=== PATIENT | male | born 1985 | race Caucasian/White ===

== ENCOUNTER 2021-01-27 19:13 | Emergency (ER) | payer OTHER, SELFPAY ==
--- NOTE | ~2021-01-27 | CT_ITS ---
EXAMINATION: CT abdomen pelvis w con INDICATION: Left lower quadrant pain TECHNIQUE: Computed tomographic images of the abdomen and pelvis were obtained after the administrati on of 100 cc of Omnipaque 350 intravenous contrast. The dose-length product (DLP) was 635.00 mGy-cm. Automated exposure control and iterative reconstruction technique were employed. COMPARISON: 10/06/2019 FINDINGS: Minimal dependent atelectasis is present in the lung bases. The heart size is normal. The l iver, spleen, pancreas, gallbladder, and adrenal glands are normal. The kidneys are unremarkable. No pathologically enlarged abdominal or pelvic lymph nodes are identified. There is no free intraperiton eal gas or evidence of bowel obstruction. A large volume of colonic stool is present. There is formed stool in the nondistended terminal ileum, suggestive of slow transit. IMPRESSION: 1. No CT correlate for the patient's symptoms. Reviewed, dictated and finalized at location A.
[2021-01-27 19:36] VITALS: BP 139/62; PULSE 66; RESP 16; TEMP 36.4; O2SAT 100
[2021-01-27 20:56] VITALS: PULSE 59; RESP 20; TEMP 36.7; O2SAT 100
--- NOTE | 2021-01-27 20:57 | ED.ABDPAIN ---
HPI - Abdominal Pain General Chief Complaint: Abdominal Pain Stated Complaint: lower abd pain Time Seen by Provider: 01/27/21 20:49 Source: RN notes reviewed History of Present Illness HPI narrative: Patient presents emergency department from home for abdominal pain. Patient states symptoms began 3 days ago. The pain is located left lower quadrant does not radiate. Described as sharp and stabbing. Nothing seems to make the pain better or worse. Denies any fevers or chills, chest pain, shortness of breath, nausea, vomiting, diarrhea or any other symptoms. States he took no medication for the symptoms today Related Data Home Medications Medication Instructions Recorded Confirmed multivitamin 1 cap PO DAILY 10/18/19 11/07/19 Allergies Allergy/AdvReac Type Severity Reaction Status Date / Time No Known Allergies Allergy Verified 10/18/19 10:07 Review of Systems Review of Systems: Narrative: Gen.: Denies fevers or chills ENT: Denies congestion Respiratory: Denies shortness of breath or cough CV: Denies chest pain or palpitations GI: See HPI denies burning, urgency, frequency or hematuria Musculoskeletal: Denies back pain or muscle pain Neuro: Denies numbness, tingling, weakness or focal weakness Skin: Denies rash Except as documented, all other systems reviewed and negative PMFSH Past Medical History Medical History (Updated 01/27/21 @ 22:26 by Rian Carr DO) Deviated septum Sinus problem Surgical History Surgical History H/O removal of cyst left wrist Hx laparoscopic cholecystectomy Social History Social History Smoking status: Never smoker Alcohol intake: current Gender identity (if verbalized by the patient): Male Exam Narrative: Exam Narrative: APPEARANCE: No acute distress, nontoxic, resting in bed HEENT: Normocephalic, atraumatic, OMM RESPIRATORY: No respiratory distress, clear to auscultation bilaterally with no rhonchi wheezing or rales CARDIOVASCULAR: RRR s murmur ABDOMINAL: Soft nondistended, tender palpation left lower quadrant no tenderness in right lower quadrant and right upper quadrant left upper quadrant no rebound or guarding MUSCULOSKELETAl: Moves all extremities. No clubbing, cyanosis or edema. NEURO: Awake and alert. Following commands, speech normal, no focal deficits SKIN:: Warm, dry. Normal Color PSYCHIATRIC: Normal affect/mood Course Course Emergency Course: Patient states that they are feeling much better at this time. States abdominal pain has resolved. Repeat abdominal exam shows the patient's abdomen to be soft and nontender. Discussed with patient results of workup and diagnosis. Discussed need for follow-up with primary care physician, reasons to return to the emergency department in proper use of medication. Patient understands and agrees to current treatment plan Vital Signs Vital signs: Vital Signs Temperature 97.5 F L 01/27/21 19:36 Pulse Rate 66 01/27/21 19:36 Respiratory Rate 16 01/27/21 19:36 Blood Pressure 139/62 01/27/21 19:36 Pulse Oximetry 100 01/27/21 19:36 Temperature 98 F 01/27/21 21:33 Pulse Rate 54 L 01/27/21 22:19 Respiratory Rate 16 01/27/21 22:19 Blood Pressure 132/83 01/27/21 22:19 Pulse Oximetry 100 01/27/21 22:19 MDM - Abdominal Pain MDM Narrative Medical decision making narrative: Patient's abdomen is soft without significant pain or signs of surgical abdomen on serial exams. Lab and x-ray evaluations are reviewed and patient is felt to be a reasonable candidate for outpatient management. Patient was instructed as to limitations of x-ray and laboratory evaluation and encouraged to return to ED or primary physician for repeat exam in 12 hours if continued or worsening pain Lab Data Result diagrams: 01/27/21 21:05 01/27/21 21:05 Labs: Lab Results 01/27
[2021-01-27 21:13] LABS: Basophils Absolute Auto 0.1 K/mm3 (0.0-0.1); Basophils Percent Auto 0.7 % (0.2-1.2); Eosinophils Absolute Auto 0.1 K/mm3 (0-0.3); Eosinophils Percent Auto 1.6 % (0-4.4); Hematocrit 46.9 % (42.0-52.0); Hemoglobin 15.3 g/dL (14.0-18.0); Immature Granulocyte Absolute 0.01 K/mm3 (0.00-0.031); Immature Granulocyte Percent A 0.1 % (0-0.5); Lymphocytes Absolute Auto 2.96 K/mm3 (0.9-3.2); Mean Corpuscular HGB Conc 32.6 g/dl (32-36); Mean Corpuscular Hemoglobin 29.5 pg (26-34); Mean Corpuscular Volume 90.5 fl (80-100); Monocytes Absolute Auto 0.5 K/mm3 (0.1-0.6); Monocytes Percent Auto 7.2 % (2.6-8.5); Neutrophils Absolute Auto 3.4 K/mm3 (1.3-6.7); Neutrophils Percent Auto 48.4 % (45.5-73.1); Platelet Count Result 196 k/mm3 (150-375); Red Blood Count 5.18 M/mm3 (4.6-6.20); Red Cell Distribution Width 12.5 % (11.5-14.5); White Blood Count 7.1 K/mm3 (4.5-10.0)
[2021-01-27 21:15] LABS: Add Urine Microscopic? NO; Appearance Urine Clear (Clear); Bilirubin Urine Negative (Negative); Blood Urine Negative (Negative); Color Urine Yellow (Yellow); Glucose Urine UA Negative (Negative); Ketones Urine Negative (Negative); Leukocyte Esterase Ur Negative LEU/UL (Negative); Nitrate Urine Negative (Negative); Protein Urine Negative (Negative); Specific Grav Ur 1.018 (1.001-1.035); Urobilinogen Urine Negative mg/dL (<2.0)
[2021-01-27 21:24] LABS: Alanine Aminotransferase 17 U/L (4-50); Albumin Level 4.9 g/dL (3.5-5.1); Alkaline Phosphatase 57 U/L (38-126); Anion Gap 6 mmol/L (8-16); Aspartate Amino Transferase 25 U/L (17-59); Bilirubin,Total 0.5 mg/dL (0.2-1.3); Blood Urea Nitrogen 14 mg/dL (9-20); Calcium 10.1 mg/dL (8.4-10.2); Carbon Dioxide 35 mmol/L (22-30); Chloride 102 mmol/L (98-107); Estimated CRCL calculation 94 ml/min; Estimated Glomerular Filt Rate > 60; Glucose 98 mg/dL (75-110); Lipase 106 U/L (23-300); Potassium 3.8 mmol/L (3.4-5.0); Sodium 143 mmol/L (137-145)
[2021-01-27] MEDS: KETOROLAC 30 MG/ML VIAL (*BKC) IV PUSH (21:28)
[2021-01-27 21:33] VITALS: BP 135/95; PULSE 55; RESP 16; TEMP 36.6; O2SAT 100
[2021-01-27 22:19] VITALS: BP 132/83; PULSE 54; RESP 16; O2SAT 100
== END 2021-01-27 22:50 | disposition home or self-care (01) ==
PROVIDERS: Emergency Provider Emergency Medicine
DX: R10.32 Left lower quadrant pain (principal)
CPT/HCPCS: 36415; 74177; 80053; 81003; 83690; 85025; 96374; 99284; J1885; J2704; Q9967

== ENCOUNTER 2022-09-11 22:07 | Emergency (ER) | payer BC, SELFPAY ==
--- NOTE | ~2022-09-11 | XR_ITS ---
EXAMINATION: XR chest 1V portable DATE: 09/12/2022 02:07 INDICATION: Cough. Shortness of breath. TECHNIQUE: A single frontal view of the chest was obtained. COMPARISON: Chest CT 09/12/2022 FINDINGS: The chest demonstrates clear lungs without pneumonia, pleural effusion, or pneumothorax. Th e heart size is normal. IMPRESSION: 1. No acute cardiopulmonary disease. Reviewed, dictated and finalized at location A. DROPPER
--- NOTE | ~2022-09-11 | CT_ITS ---
EXAMINATION: CTA chest PE protocol DATE: 09/12/2022 03:50 INDICATION: Dyspnea. TECHNIQUE: Computed tomography angiography (CTA) of the chest was performed with 100 mL Omnipaque-350 intravenous contrast timed to evaluate the pulmonary arteries. Coronal maximum intensity projection 3D-reconstructions were created by the technologist. Automated exposure control and iterative reconst ruction technique were employed. The dose-length product was 778.42 mGy-cm. COMPARISON: CT abdomen and pelvis 01/27/2021 FINDINGS: There is mild atelectasis bilaterally. No pleural effusion. The heart size is normal. No pe ricardial effusion. There is no pulmonary embolus. There is mild thoracic spondylosis. There is mild chronic anterior wedging of multiple vertebral bodies. IMPRESSION: 1. No pulmonary embolus. Reviewed, dictated and finalized at location A. LOT PACKER IMPRESSION: 1. No pulmonary embolus.
[2022-09-11 22:09] VITALS: BP 165/90; PULSE 89; RESP 15; TEMP 36.3; O2SAT 98
[2022-09-12] VITALS (19 sets, daily range): BP systolic 102–149; BP diastolic 68–101; PULSE 72–108; RESP 13–18; TEMP 36.8–36.9; O2SAT 94–100
[2022-09-12 02:16] LABS: INR 1.1; Prothrombin Time 13.4 Seconds (11.1-14.7)
[2022-09-12 02:17] LABS: Alanine Aminotransferase 31 U/L (6-50); Albumin Level 4.9 g/dL (3.5-5.1); Alkaline Phosphatase 61 U/L (38-126); Anion Gap 6 mmol/L (8-16); Aspartate Amino Transferase 29 U/L (17-59); Bilirubin,Total 0.4 mg/dL (0.2-1.3); Blood Urea Nitrogen 19 mg/dL (9-20); Calcium 9.2 mg/dL (8.4-10.2); Carbon Dioxide 30 mmol/L (22-30); Chloride 104 mmol/L (98-107); Estimated CRCL calculation 114 ml/min; Estimated Glomerular Filt Rate > 60; Glucose 92 mg/dL (65-110); Partial Thromboplastin Time 35.6 SECONDS (22.3-36.8); Potassium 3.9 mmol/L (3.4-5.0); Sodium 140 mmol/L (137-145)
[2022-09-12 02:28] LABS: D Dimer 0.56 ug/mL (<0.48)
[2022-09-12 02:29] LABS: Basophils Absolute Auto 0.1 K/mm3 (0.0-0.1); Basophils Percent Auto 1.1 % (0.2-1.2); Eosinophils Absolute Auto 0.5 K/mm3 (0-0.3); Eosinophils Percent Auto 7.2 % (0-4.4); Hematocrit 46.5 % (42.0-52.0); Hemoglobin 15.5 g/dL (14.0-18.0); Immature Granulocyte Absolute 0.01 K/mm3 (0.00-0.031); Immature Granulocyte Percent A 0.2 % (0-0.5); Lymphocytes Absolute Auto 2.65 K/mm3 (0.9-3.2); Lymphocytes Percent Auto 39.8 % (18.3-44.2); Mean Corpuscular HGB Conc 33.3 g/dl (32-36); Mean Corpuscular Hemoglobin 29.6 pg (26-34); Mean Corpuscular Volume 88.7 fl (80-100); Mean Platelet Volume 10.6 fl (7.4-10.4); Monocytes Absolute Auto 0.5 K/mm3 (0.1-0.6); Monocytes Percent Auto 7.5 % (2.6-8.5); Neutrophils Percent Auto 44.2 % (45.5-73.1); Platelet Count Result 217 k/mm3 (150-375); Red Blood Count 5.24 M/mm3 (4.6-6.20); Red Cell Distribution Width 13.1 % (11.5-14.5); White Blood Count 6.7 K/mm3 (4.5-10.0)
--- NOTE | 2022-09-12 02:50 | ECG_ITS ---
Measurements Intervals [place] Rate: 81 P: -14 VT: 168 QRS: 67 QRSD: 101 T: 39 QT: 372 QTc: 433 Interpretive Statements SINUS RHYTHM NORMAL ECG NO PREVIOUS ECG AVAILABLE FOR COMPARISON Electronically Signed On 09-12-2022 7:49:28 CONSUMER LOAN UNDERWRITER by Santos Dalton D.O.
--- NOTE | 2022-09-12 02:54 | ED.SOB ---
HPI - SOB/Dyspnea General Chief Complaint: Shortness of Breath/Dyspnea Stated Complaint: dyspnea Time Seen by Provider: 09/12/22 01:55 Source: RN notes reviewed History of Present Illness HPI Narrative: Patient presents emergency department from home for shortness of breath. Patient states he was diagnosed with COVID 2 weeks ago. States that approximately a week ago he began to feel progressively more short of breath. States been associate with a cough this been nonproductive shortness of breath is worse with activity. He denies any fevers or chills he states he does feel mild tightness across his chest denies abdominal pain nausea or vomiting. States he has not take anything for the symptoms Related Data Home Medications Medication Instructions Recorded Confirmed multivitamin 1 cap PO DAILY 10/18/19 12/02/21 Allergies Allergy/AdvReac Type Severity Reaction Status Date / Time No Known Allergies Allergy Verified 10/18/19 10:07 Review of Systems Review of Systems: Gen.: Denies fevers or chills ENT: Denies congestion Respiratory: HPI CV: Reports mild chest tightness, denies palpitations GI: Denies abdominal pain nausea, emesis or diarrhea Musculoskeletal: Denies back pain or muscle pain Neuro: Denies numbness, tingling, weakness or focal weakness Skin: Denies rash Except as documented, all other systems reviewed and negative [facility] Past Medical History Medical History Allergies Asthma Deviated septum Sinus problem Surgical History Surgical History H/O removal of cyst left wrist History of appendectomy Family History Family History Grandparent Mesothelioma Social History Social History Smoking status: Never smoker Alcohol intake: current Alcohol use details: rare Substance use: never Gender identity (if verbalized by the patient): Male Exam Narrative: APPEARANCE: No acute distress, nontoxic, resting in bed EYES: EOMI HEENT: Normocephalic, atraumatic, OMM RESPIRATORY: No respiratory distress wheezing throughout the bilateral lung martel no rhonchi or rales CARDIOVASCULAR: Regular rate and rhythm without murmurs rubs or gallops. ABDOMINAL: Soft, nontender, nondistended, no rebound or guarding MUSCULOSKELETAl: Moves all extremities. No clubbing, cyanosis or edema. NEURO: Awake and alert. Following commands, speech normal, no focal deficits SKIN:: Warm, dry. No rashes lesions or abrasions PSYCHIATRIC: Normal affect/mood, Course Course Emergency Course: Following breathing treatment repeat lung exam is clear to auscultation bilaterally Patient states he is feeling better this time discussed with him the CT scan no blood clot seen mild possible pneumonia we will treat with antibiotics and discharge Discussed with patient results of workup and diagnosis. Discussed need for follow-up with primary care, proper use of medication, and reasons to return to the emergency department. Patient understands and agrees to current treatment plan Vital Signs Vital signs: Vital Signs Temperature 97.4 F L 09/11/22 22:09 Pulse Rate 89 09/11/22 22:09 Respiratory Rate 15 09/11/22 22:09 Blood Pressure 165/90 H 09/11/22 22:09 Pulse Oximetry 98 09/11/22 22:09 Oxygen Delivery Room Air 09/11/22 22:09 Temperature 98.2 F 09/12/22 02:04 Pulse Rate 85 09/12/22 06:01 Respiratory Rate 18 09/12/22 06:01 Blood Pressure 126/82 09/12/22 06:01 Pulse Oximetry 96 09/12/22 06:01 Oxygen Delivery Room Air 09/11/22 22:09 MDM - SOB/Dyspnea MDM Narrative Medical decision making narrative: Patient presents for shortness of breath had COVID 2 weeks ago wheezing on exam steroids and breathing treatment given with improvement of air movement CTA of the chest abisai
[2022-09-12] MEDS: ALBUTEROL SULFATE NEB 2.5 MG/3 ML INH 5 MG INHALATION ×2 (03:04→04:59)
[2022-09-12] MEDS: IPRATROPIUM BR 0.02% INH SOLN 0.5 MG/2.5 ML VIAL INHALATION ×2 (03:04→04:59)
[2022-09-12 03:20] LABS: Troponin I < 0.012 ng/mL (0.000-0.034)
[2022-09-12] MEDS: methylPREDNISolone SOD SUCC 125 MG VIAL IV PUSH (03:52)
[2022-09-12] MEDS: DOXYCYCLINE HYCLATE 100 MG TABLET PO (06:57)
== END 2022-09-12 07:06 | disposition home or self-care (01) ==
PROVIDERS: Emergency Provider Emergency Medicine; PCP Internal Medicine
DX: J18.9 Pneumonia, unspecified organism (principal); J45.909 Unspecified asthma, uncomplicated; Z86.16 Personal history of COVID-19
CPT/HCPCS: 36415; 71045; 71275; 80053; 84484; 85025; 85380; 85610; 85730; 93005; 94640; 96374; 99284; 99285; A9270; J2930; Q9967

== ENCOUNTER 2024-03-12 15:21 | Outpatient (CLI) | payer BC, SELFPAY ==
--- NOTE | ~2024-03-12 | XR_ITS ---
EXAM: XR lumbar spine 2-3V DATE: 03/12/2024 15:41 HISTORY: Bending injury, LBP that goes down left leg for 4 days . COMPARISON: CT abdomen pelvis 01/27/2021. FINDINGS: 5 nonrib-bearing lumbar-type vertebral bodies. Mild spinal asymmetry. Pedicles intact. Sta ble minimal retrolistheses at L3-4 and L5-S1. Vertebral body heights preserved. Mild disc space narro wing at L3-4 through L5-S1. Mild facet narrowing and sclerosis at L5-S1. No fracture or dislocation. IMPRESSION: Stable grade 1 retrolistheses at L3-4 and L5-S1. Mild degenerative disc disease at L3-4 t hrough L5-S1. Mild L5-S1 facet arthropathy. Reviewed, dictated and finalized at location K. IMPRESSION: Stable grade 1 retrolistheses at L3-4 and L5-S1. Mild degenerative disc disease at L3-4 through L5-S1. Mild L5-S1 facet arthropathy.
== END 2024-03-12 15:22 ==
PROVIDERS: PCP Internal Medicine; Visit Provider Clinical Nurse Specialist
DX: M51.36 Other intervertebral disc degeneration, lumbar region (principal); M51.37 Other intervertebral disc degeneration, lumbosacral region
CPT/HCPCS: 72100

== ENCOUNTER 2024-10-10 09:09 | Outpatient (CLI) | payer BC, SELFPAY ==
--- NOTE | ~2024-10-10 | MR_ITS ---
EXAMINATION: MR lumbar spine wo con DATE: 10/10/2024 09:34 INDICATION: Lumbar radiculopathy TECHNIQUE: Magnetic resonance imaging (MRI) of the lumbar spine was performed without intravenous con trast. Sequences included sagittal T2-weighted FSE, sagittal T2-weighted FS FSE, sagittal T1-weighted FSE, and axial T2-weighted FSE. COMPARISON: None FINDINGS: Alignment is normal. Vertebral body heights are normal. Prominent T1 hyperintense hemangioma in the L 5 vertebral body. Bone marrow signal is otherwise normal throughout. Mild disc desiccation, mild disc height loss and annular fissures at L3-L4 and L4-5. The conus medullaris terminates at T12-L1. There is normal signal in the caudal spinal cord. Paravertebral soft tissues are unremarkable. The followi ng disc levels are specifically discussed: T12-L1: The disc does not extend beyond the endplate margin. There is mild bilateral facet joint oste oarthritis. There is no neural foraminal stenosis. There is no central canal stenosis. L1-L2: The disc does not extend beyond the endplate margin. There is mild bilateral facet joint osteo arthritis. There is mild left neural foraminal stenosis. There is no central canal stenosis. L2-L3: Disc is minimally bulging. There is bilateral facet joint osteoarthritis. There is mild left a nd minimal right neural foraminal stenosis. There is no central canal stenosis. L3-L4: Disc is bulging with superimposed left foraminal zone annular fissure and disc protrusion. The re is mild bilateral facet joint osteoarthritis. There is moderate left and mild right neural foramin al stenosis. There is mild central canal stenosis. L4-L5: Disc is bulging with superimposed central to right paracentral annular fissure. There is mild bilateral facet joint osteoarthritis. There is mild bilateral neural foraminal stenosis. There is mil d central canal stenosis. L5-S1: The disc does not extend beyond the endplate margin. There is mild bilateral facet joint osteo arthritis. There is no neural foraminal stenosis. There is no central canal stenosis. IMPRESSION: 1. Mild lower lumbar spondylosis. Reviewed, dictated and finalized at location B. TEAM LEADER
== END 2024-10-10 09:10 | disposition home or self-care (01) ==
LOC: GOSHIMG 09:10
PROVIDERS: PCP Clinical Nurse Specialist; Visit Provider Clinical Nurse Specialist
DX: M47.26 Other spondylosis with radiculopathy, lumbar region (principal)
CPT/HCPCS: 72148

== ENCOUNTER 2024-10-14 16:36 | Emergency (ER) | payer BC, SELFPAY ==
[2024-10-14 17:03] VITALS: BP 158/81; PULSE 74; RESP 16; TEMP 36.5; O2SAT 99
--- NOTE | 2024-10-14 17:17 | ED_ITS ---
HPI - Skin/Abscess/Foreign Bdy General Chief complaint: Skin/Abscess/Foreign Body Stated complaint: Blisters Time Seen by Provider: 10/14/24 17:10 Source: patient Mode of arrival: ambulatory Limitations: no limitations History of Present Illness HPI narrative: Jayant is a 39-year-old male patient presenting to the clinic today with complaints of blisters on his left foot toes. Reports symptoms started approximately 2 weeks ago. He has been trying some athlete's foot medicine without relief. States that the blisters are somewhat painful but not itching. No environmental changes. Denies any fevers, chills, body aches. States that the areas just slightly tender with palpation Related Data Allergies Allergy/AdvReac Type Severity Reaction Status Date / Time No Known Allergies Allergy Verified 10/08/24 07:56 Review of Systems Review of Systems: Pertinent positives per HPI. Patient denies any fever, chills, headache, visual changes, dizziness, cough, runny nose, sore throat, shortness of breath, chest pain, palpitations, nausea, vomiting, diarrhea, constipation, abdominal pain, or any urinary issues. PMFSH Past Medical History Medical History Asthma Allergies Deviated septum Sinus problem Surgical History Surgical History S/P correction of deviated nasal septum (~09/2024) History of appendectomy H/O removal of cyst left wrist Family History Family History Grandparent Mesothelioma Social History Social History Social History: Caffeine-daily Smoking status: Never smoker Alcohol intake: current Alcohol use details: rare Substance use: never Substance use type: does not use Gender identity (if verbalized by the patient): Male Comments At the time of my signature, I reviewed and agree with the nursing past medical, surgical, social, and family history. There is no relevant family history pertinent to the patient complaint. Exam Narrative: General: Well-developed, well nourished, in no apparent distress Head: Normocephalic, atraumatic. Cardio: Regular rate and rhythm, s1 and s2 normal, no murmur appreciated. Resp: Clear to auscultation bilaterally, no rhonchi, rales, wheezing or rubs. Integumentary: [place], warm, and dry, few clear vesicular isolated blisters to the lateral 5th toe and to the great toe-mildly tender to palpation, mild redness surrounding Course Course Emergency Course: Portions of this record may have been created with voice recognition software. Level of Care: Express Care Visit Vital Signs Vital signs: Vital Signs Temperature 36.5 C 10/14/24 17:03 Pulse Rate 74 10/14/24 17:03 Respiratory Rate 16 10/14/24 17:03 Blood Pressure 158/81 H 10/14/24 17:03 Pulse Oximetry 99 10/14/24 17:03 Temperature 36.5 C 10/14/24 17:03 Pulse Rate 74 10/14/24 17:03 Respiratory Rate 16 10/14/24 17:03 Blood Pressure 158/81 H 10/14/24 17:03 Pulse Oximetry 99 10/14/24 17:03 Vital signs reviewed MDM - Skin/Abscess/Foreign Bdy MDM Narrative Medical decision making narrative: At the time of visit patient is resting comfortably on the exam table. Patient appears to be nontoxic. Plan: Patient has blisters to the right great toe and the left 5th toe. Area is red and tender the blistered area. He has attempted athlete's foot cream without any relief. I suspect he may have an infection. Symptoms have been going on for 2 weeks. Prescription for mupirocin cream was sent to the pharmacy. Supportive measures were discussed with the patient and they voiced understanding discharge instructions and agrees to treatment plan. Return precautions reviewed Discharge Plan Discharge Clinical Impression: Blister (nonthermal), left foot, initial encounter Patient Disposition: Home, Self-Care Condition: Stable Instructions: Antibiotic Form, Blister (ED) Additional Instructions: Apply mupirocin cream to the affected area Keep foot clean and dry May take Tylenol/Motrin as needed for pain Follow-up with your primary care doctor or barge engineer in 1 week if symptoms persist. Patient Language: [place] Prescriptions: New mupirocin [Centany] 2 % ointment 1 applic topical BID 7 Days Qty: 22 0RF Follow-up/Referrals: PHYSICIAN,STAFF PHYSICAL THERAPY ASSISTANT [Primary Care Provider] - Time of Disposition: 17:18 Quality NIHSS Nursing Documentation ED NIHSS nursing documentation: reviewed/agree
== END 2024-10-14 17:21 | disposition home or self-care (01) ==
PROVIDERS: Emergency Provider Nurse Practitioner Family
DX: S90.422A Blister (nonthermal), left great toe, initial encounter (principal); S90.425A Blister (nonthermal), left lesser toe(s), initial encounter; X58.XXXA Exposure to other specified factors, initial encounter; J45.909 Unspecified asthma, uncomplicated
CPT/HCPCS: 99213; G0463